=== PATIENT | male | born 1960 | race Caucasian/White ===

== ENCOUNTER → 2017-06-28 | Outpatient (CLI) | payer OTHER ==
[~2017-06-28] MED LIST: AMBIEN 10MG10 MG PO; EMEND125 MG PO; FLAGYL500 MG PO; HCTZ 25MG TAB25 MG PO; IMODIUM 2MG CAPS2 MG PO; KEPPRA 500MG500 MG PO; PENTASA250 MG PO; PENTASA500 MG PO; PERCOCET 325 MG1 TA2 PO; PERCOCET 325 MG1 TAB PO; PREDNISONE10 MG PO; PREDNISONE20 MG PO; PRINIVIL10 MG PO; PRINZIDE 25 MG-1 TAB PO; PROBIOTIC FORMU1 CAP PO; SILENOR6 MG PO; VALIUM 5MG T5 MG/TAB PO; [UNRECOGNIZED DRUG - CODE] PO
== END ==
LOC: COL.CARD 09:41
DX: Z86.69 Personal history of other diseases of the nervous system and sense organs (principal); Z85.818 Personal history of malignant neoplasm of other sites of lip, oral cavity, and pharynx; Z86.59 Personal history of other mental and behavioral disorders

== ENCOUNTER → 2017-08-09 | Outpatient (CLI) | payer OTHER | LOC: COL.CARD 08:15 | DX: R94.01 Abnormal electroencephalogram [EEG] (principal) ==